=== PATIENT | male | born 1980 | race African-American/Black ===

== ENCOUNTER 2017-09-09 10:59 | Outpatient (CLI) | payer BC ==
[~2017-09-09 10:59] MED LIST: Iopamidol 370 76% 100 ML VIAL ONE
--- NOTE | 2017-09-09 13:25 | CT ---
CT OF THE CHEST AND ABDOMEN AND PELVIS WITH AND WITHOUT IV CONTRAST: INDICATION: Renal mass concerning for renal vein thrombosis. TECHNIQUE: Multiple CT images were obtained of the chest, abdomen, and pelvis utilizing arterial and venous phas es for the abdomen and pelvis to evaluate for possible renal vein invasion by a large left renal canc er. COMPARISON: Prior CT of the abdomen and pelvis dated 08/11/17. FINDINGS: No focal pulmonary lesion is evident. No pleural effusion is demonstrated. No enlarged lymph node i s evident. There is bilateral male gynecomastia. The axillary regions are within normal limits. Motion artifact from the patient limits image detail of the mid abdomen. 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 The main renal artery is widely alcantara nt. The heterogeneously enhancing solid mass suspicious for malignancy is similar-appearing. There is a duplicated right renal artery. There are mild vascular calcifications noted involving the abdom inopelvic vasculature. The SMA and celiac arteries are widely patent. The JOSE A appears patent. No o vert evidence of renal vein invasion is evident on the venous phase exam; however, patient motion art ifact heavily limits image detail. Calcifications of the pancreatic head region appear similar. No definite pathologically enlarged lymph nodes are grossly evident. The prostate again is enlarged measuring 5.2 cm. There is no definite acute osseous abnormality. IMPRESSION: 1. Large heterogeneous mass of the left mid kidney is similar to the most recent comparison of 8. There is no overt evidence to suggest renal vein invasion. 2. Duplicated right renal arteries bilaterally. 3. Stable calcifications involving the pancreatic head and neck regions are nonspecific and may refl ect sequelae of prior focal pancreatitis. 4. No suspicious pulmonary lesion seen within the thorax to suggest thoracic malignancy. 5. Some limitation of examination due to patient motion. POS: ANA
--- NOTE | 2017-09-09 15:38 | NM ---
WHOLE BODY BONE SCAN: HISTORY: Left renal malignancy. RADIOPHARMACEUTICAL: 30 mCi Technetium 99m-MDP injected intravenously. FINDINGS: Correlation is made with the CT chest, abdomen, and pelvis of same date. Mildly increased uptake in the shoulders, shoulders, elbows, wrists, ankles, and feet is consistent w ith degenerative changes. Focus of increased uptake in the left maxilla is consistent with periodont al disease. No other abnormal areas of tracer localization are seen in the skeleton to suggest metas tatic disease. Tracer excretion through the kidneys is within normal limits. IMPRESSION: No scintigraphic evidence of osseous metastatic disease. POS: OFF
== END 2017-09-09 11:00 | disposition home or self-care (01) ==
LOC: CT 10:59
PROVIDERS: ATTEND Urology
DX: N28.89 Other specified disorders of kidney and ureter (principal); R31.29 Other microscopic hematuria; Q27.2 Other congenital malformations of renal artery; K86.89 Other specified diseases of pancreas; Z72.0 Tobacco use
CPT/HCPCS: 71260; 74174; 78306; A9503